=== PATIENT | female | born 1965 ===

== ENCOUNTER 2017-12-22 13:51 | Emergency (ER) | payer OTHER ==
[2017-12-22] MEDS: diphenhydrAMINE 50 MG/ML VIAL IM (14:15)
[2017-12-22] MEDS: methylPREDNISolone SOD SUCC PF 125 MG/2 ML VIAL. IM (14:28)
== END 2017-12-22 15:19 | disposition home or self-care (01) ==
LOC: ER 13:51
DX: L23.4 Allergic contact dermatitis due to dyes (principal); Z88.0 Allergy status to penicillin
CPT/HCPCS: 96372; 99283; J2930

== ENCOUNTER 2019-07-06 01:32 | Emergency (ER) | payer MEDICARE ==
[~2019-07-06] VITALS: Ht 180.3 cm; Wt 111.3 kg
[~2019-07-06 01:32] MED LIST: ACET500T68 PO; ASPI-612 PO; BENZ-8 PO; CHLO50TA PO; CHOL100013 PO; CYAN500T17 PO; DOXY100T PO; DULO60CA6 PO; FERR325T14 PO; LORA10TA65 PO; LOSA100T14 PO; OMEG1CAP50 PO; PANT40TA77 PO; POLY15DR27 EACHEYE; POTA10TA6 PO; PRED-220 PO
[2019-07-06] MEDS ORDERED: PRED20TA PO (01:52)
[2019-07-06] MEDS ORDERED: FAMO-63 PO (01:52)
[2019-07-06] MEDS ORDERED: DIPH25TA24 PO (01:52)
--- NOTE | 2019-07-06 01:52 | PHYS DOC ---
Past Medical History Past Medical History: Arthritis, Fibromyalgia, Hypertension, Lung Disease, Other Additional Past Medical Histor: bulging discs; cyst left hip Past Surgical History: Cholecystectomy, , Hysterectomy, Other Additional Past Surgical Histo: right elbow; lung biopsy Smoking Status: Former Smoker Alcohol Use: Rarely Drug Use: None Adult General Chief Complaint Chief Complaint: ALLERGIC REACTION HPI HPI Patient is a 54 year old female who presents with allergic reaction. The patient states that she put her in her hair 3 days ago. She states that she's developed a small rash afterwards and then over the last couple days symptoms progressively gotten worse. The patient started having scalp issue itching, left eye swelling, hives on arms, and body. Has been using Benadryl at home. Last had Benadryl at 9:30 PM last night. States that she woke up with symptoms worsen. Denies any shortness of breath, is able talk in full sentences. Complete ROS were reviewed and found to be within normal limits, except as documented in the HPI Current Medications Current Medications Current Medications Medications (Trade) Dose Ordered Sig/Wolfgang Start Time Stop Time Status Last Admin Dose Admin Diphenhydramine HCl (Benadryl) 50 mg 1X ONCE 07/06/19 02:00 07/06/19 02:01 Famotidine (Pepcid) 20 mg 1X ONCE 07/06/19 02:00 07/06/19 02:01 Methylprednisolone Sodium Succinate (SOLU-Medrol 125MG VIAL) 125 mg 1X ONCE 07/06/19 02:00 07/06/19 02:01 Allergies Allergies Allergies Coded Allergies Type Severity Reaction Last Updated Verified Oukrdiq-Uoz-Iag Reductase Inhibitor Allergy Severe Swelling 04/07/19 Yes Penicillins Allergy Intermediate hives 12/22/17 Yes Physical Exam Physical Exam Constitutional: Well developed, well nourished, no acute distress, non-toxic appearance. [] HENT: Normocephalic, atraumatic, bilateral external ears normal, oropharynx moist, no oral exudates, nose normal. [] Eyes: L orbital swelling Neck: Normal range of motion, no stridor. [] Cardiovascular:Heart rate regular rhythm, no murmur [] Lungs & Thorax: Bilateral breath sounds clear to auscultation [] Skin: erythema and hives on face, arms, neck, scalp is dry. Neurologic: Alert and oriented X 3, normal motor function, normal sensory function, no focal deficits noted. [] Psychologic: Affect normal, judgement normal, mood normal. [] Current Patient Data Vital Signs Vital Signs Date Time Temp Pulse Resp B/P (MAP) Pulse Ox O2 Delivery O2 Flow Rate FiO2 07/06/19 01:35 98.2 91 14 169/72 (104) 98 Room Air 98.2 EKG EKG [] Radiology/Procedures Radiology/Procedures [] Course & Med Decision Making Course & Med Decision Making Pertinent Labs and Imaging studies reviewed. (See chart for details) Will give IM Solumedrol, Benadryl, and Pepcid. Will write script for prednisone and have continue using Benadryl and pepcid at home. Dragon Disclaimer [employer] Disclaimer This electronic medical record was generated, in whole or in part, using a voice recognition dictation system. Departure Departure Impression: Primary Impression: Allergic reaction Disposition: HOME, SELF-CARE Condition: STABLE Referrals: UNKNOWN PCP NAME (PCP) Additional Instructions: Thank you for visiting [facility]. We appreciate you trusting us with your care. If any additional problems come up don't hesitate to return to visit us. Please follow up with your primary care provider so they can plan additional care if needed and know about the problem that you had. If symptoms worsen come back to the Emergency Department. Any concerning symptoms that start such as chest pain, shortness of air, weakness or numbness on one side of the body, running high fevers or any other concerning symptoms return to the ER. Please fill your medications at any pharmacy and follow the prescription instructions. Scripts Famotidine (PEPCID) 20 Mg Tablet 20 MG PO BID for 5 Days, #10 TAB Prov: BEBA MONTERO APRN 07/06/19 Diphenhydramine Hcl (DIPHENHYDRAMINE HCL) 25 Mg Tablet 1 TAB PO PRN Q4HRS PRN for ITCHING for 5 Days, TAB 0 Refills Prov: BEBA MONTERO APRN 07/06/19 Prednisone (PREDNISONE) 20 Mg Tablet 1 TAB PO BID, #10 TAB Prov: BEBA MONTERO APRN 07/06/19 Problem Qualifiers Primary Impression: Allergic reaction Encounter type: initial encounter Qualified Codes: T78.40XA - Allergy, unspecified, initial encounter BEBA MONTERO APRN Jul 06, 2019 01:52
[2019-07-06] MEDS ORDERED: diphenhydrAMINE 50 MG/ML VIAL IM ONE (02:00)
[2019-07-06] MEDS ORDERED: FAMOTIDINE 20 MG TABLET. PO ONE (02:00)
[2019-07-06] MEDS ORDERED: methylPREDNISolone SOD SUCC PF 125 MG/2 ML VIAL. IM ONE (02:00)
[2019-07-06 02:53] VITALS: BP 140/80
== END 2019-07-06 02:55 | disposition home or self-care (01) ==
LOC: ER 01:32
DX: T78.40XA Allergy, unspecified, initial encounter (principal); I10 Essential (primary) hypertension; Z87.891 Personal history of nicotine dependence; Z88.0 Allergy status to penicillin; Z91.041 Radiographic dye allergy status
CPT/HCPCS: 96372; 99284; J1200; J2930